=== PATIENT | male | born 1980 | race Caucasian/White ===

== ENCOUNTER 2017-03-23 21:32 | Emergency (ER) | payer OTHER ==
[~2017-03-23] VITALS: Ht 177.8 cm; Wt 93.2 kg
[2017-03-23 21:35] VITALS: BP 171/120; PULSE 108; RESP 18; O2SAT 97
--- NOTE | 2017-03-23 21:47 | ED.REPORT ---
HPI-General Illness Date of Service Mar 23, 2017 ED Provider: Gerardo Aguirre MD A 36 year old male with a history of hypertension, smoking and daily alcohol use presents to the ED complaining of elevated blood pressure. The pt noticed it initially at work earlier today, associated with some mild diaphoresis. He states that he started "feeling hypertensive", Checked it and noticed at that it was 175/120. This has continued throughout the day with no notable alleviating or exacerbating factors. He denies chest pain, focal weakness or balance issues. No vision changes. The pt admits to drinking alcohol today. He was on hypertension medications but stopped taking them two or three years ago. No other complaints at this time. Nursing Notes Stated Complaint: HIGH BLOOD PRESSURE Chief Complaint: General Complaint Nursing Notes Reviewed: Yes Allergies: Coded Allergies: No Known Allergies (Unverified , 03/23/17) General Time Seen by MD: 21:46 Chief Complaint Other (Diaphoresis) Hx Obtained From: Patient Arrived By: Walk-in Sudden in Onset?: No Onset Occurred: 13 - 16 hours ago Symptom Duration: Since onset Recent Healthcare: No recent hospitalization Similar Sx Previous: No Past Medical History Past Medical History Reports: Hypertension Past Surgical History skin graft at 13 tubes in ears at 4 Smoking History Current Every Day Smoker Social History Alcohol Use: 1-3 per day Drug Use: Cocaine (occasional), THC Ambulatory Status Independent Review of Systems denies focal weakness denies balance issues Full Review of Systems Respiratory: Denies: Non-productive cough, Shortness of breath Cardiovascular: Denies: Chest pain GI: Denies: Abdominal pain, Vomiting Musculoskeletal: Denies: Back pain, Neck pain Skin: Reports Diaphoresis, Denies Rash Complete sys rev & neg: except as marked. Physical Exam Constitutional: Well-developed, well-nourished. Head: Normocephalic and atraumatic. Mouth/Throat: Oropharynx is clear and moist. No oropharyngeal exudate. Eyes: EOM are normal. Pupils are equal, round, and reactive to light. Neck: Supple, no tracheal deviation. Cardiovascular: Mildly tachycardic, regular rhythm. Equal and intact distal pulses throughout. Pulmonary/Chest: Effort normal and breath sounds normal. No respiratory distress. Abdominal: Soft. No distension. There is no tenderness, rebound, or guarding. Bowel sounds present. Musculoskeletal: Range of motion grossly intact, moving all extremities. No edema or tenderness appreciated. Neurological: AOx3. Grossly nonfocal exam. Strength and sensation intact and equal to bilateral upper and lower extremities. Skin: Warm and moist. No rashes or pallor appreciated. Psychiatric: Appropriate mood and affect. Behavior appears normal. Vital Signs Vital Signs Date Time Temp Pulse Resp B/P Pulse Ox O2 Delivery O2 Flow Rate FiO2 03/24/17 00:30 36.6 99 16 170/99 98 Room Air 03/23/17 21:35 37.0 108 18 171/120 97 Room Air Initial VS: Reviewed Interpretation & Diagnostics Lab Results Interpretation Result Diagram: 03/23/17215403/23/172154 Test 03/23/17 21:55 White Blood Count 9.2th/mm3 (3.8-10.1) Red Blood Count 5.14mil/mm3 (4.40-5.80) Hemoglobin 15.9g/dL (13.8-17.2) Hematocrit 46.0% (41.0-50.0) Mean Corpuscular Volume 89.5fL (81-100) Mean Corpuscular Hemoglobin 30.9pg (27.0-35.0) Mean Corpuscular Hemoglobin Concent 34.6% (32.0-37.0) Red Cell Distribution Width 12.9% (12.3-15.4) Platelet Count 246bil/L (150-400) Neutrophils (%) (Auto) 45.1% (40-74) Lymphocytes (%) (Auto) 41.8% (14-46) Monocytes (%) (Auto) 9.3% (4-12) Eosinophils (%) (Auto) 3.2% (0-5) Basophils (%) (Auto) 0.5% (0-3) Sodium Level 137mEq/L (134-144) Potassium Level 4.7mEq/L (3.5-5.2) Chloride Level 95mEq/L (97-108) Carbon Dioxide Level 25mmol/L (18-29) Blood Urea Nitrogen 13mg/dL (6-20) Creatinine 0.89mg/dL (0.76-1.27) Estimat Glomerular Filtration Rate 104mL/min (>59) Glucose Level 96mg/dL (60-99) Calcium Level 9.4mg/dL (8.5-10.1) Total Bilirubin 0.3mg/dL (0.0-1.2) Aspartate Amino Transf (AST/SGOT) 29U/L (0-50) Alanine Aminotransferase (ALT/SGPT) 26U/L (0-44) Alkaline Phosphatase 74U/L (25-150) Troponin T 0.010ug/L (0.0-0.011) Total Protein 7.8g/dL (6.4-8.4) Albumin 4.5g/dL (3.4-5.0) Thyroid Stimulating Hormone (TSH) 2.710uIU/mL (0.450-4.500) Free Thyroxine 1.48ng/dL (0.82-1.77) Hold Meier Top Tube Received (Received) ECG Interpretation ECG Interpretation: normal sinus rhythm with a rate of 98 ST elevation, probable normal early repol pattern Time: 21:52 Interpreted by: ED physician Re-Eval/Medical Decision Med Decision/Clinical Course In summary, 36-year-old male presenting to the ED for evaluation of hypertension noticed earlier today. He is mildly tachycardic and hypertensive here in the ED, however does not appear to be having any signs of end organ damage that would suggest hypertensive emergency. Laboratory studies grossly within normal limits, including normal TSH and free T4. Kidney function appears to be intact, troponin within normal limits, EKG with no acute ischemic changes appreciated - possible benign early repolarization and the patient is not having any chest pain. He is not having any headache or vision changes that would prompt imaging of the head at this time. He does admit to drinking alcohol today and smells of alcohol and examination. Upon my assessment, is only mildly tachycardic with a rate of about 100. Given this, reasonable to discharge home with careful return precautions, follow-up in clinic on Saturday. Patient agreeable to the plan as stated, no further questions. Source of Hx: Old records Time of Eval: 23:57 Patient Status: Condition improved Re-Evaluation/Progress Note: Pt rechecked, who is resting. The diagnosis and plan for discharge are discussed. The pt understands and agrees with the plan. All questions are addressed at this time. Counseled Regarding: Diagnosis, Lab results, Need for follow-up, When/why to return to ED Discharge & Departure Primary Impression: Hypertension Hypertension type: unspecified secondary hypertension Qualified Code: I15.9 - Secondary hypertension, unspecified Disposition: Home Discharge Condition All VS Reviewed: Yes Condition: Stable Patient Instructions: Hypertension (ED) Additional Instructions: Thank you for allowing us to be a part of your care today. Call your primary care physician on Saturday to arrange a follow up appointment next week for further evaluation. You will need to restart blood pressure medications, so discuss this during your follow up. Return to the emergency department if you develop any new or worsening symptoms including chest pain, headache, vision changes, or anything else of concern to you. Referrals: [facility] Scribe Attestation Portions of this note were transcribed by Heather Ocampo. I, Dr. Aguirre personally performed the history, physical exam and medical decision-making; I reviewed and confirmed the accuracy of the information in the transcribed note. Signed by: Vidhya Aguilera, 03/24/2017 and 0034. copies to: [facility] Gerardo Aguirre MD Mar 23, 2017 21:47 HEATHER OCAMPO Mar 23, 2017 23:46
[2017-03-23 22:08] LABS: BASOPHILS % (AUTO) 0.5 % (0-3); EOSINOPHILS % (AUTO) 3.2 % (0-5); MONOCYTES % (AUTO) 9.3 % (4-12); Mean Corpuscular Hemoglobin 30.9 pg (27.0-35.0); Mean Corpuscular Volume 89.5 fL (81-100); NEUTROPHILS % (AUTO) 45.1 % (40-74); Platelet Count 246 bil/L (150-400)
[2017-03-23 22:37] LABS: TROPONIN T 0.01 ug/L (0.0-0.011)
[2017-03-24 00:30] VITALS: BP 170/99; PULSE 99; RESP 16; O2SAT 98
== END 2017-03-24 00:30 | disposition home or self-care (01) ==
LOC: SED 21:32
DX: I15.9 Secondary hypertension, unspecified (principal); R61 Generalized hyperhidrosis; F17.200 Nicotine dependence, unspecified, uncomplicated